=== PATIENT | male | born 1950 ===

== ENCOUNTER → 2018-04-02 | Outpatient (CLI) | payer OTHER, MEDICARE ==
[2018-04-02 18:51] LABS: FREE T4 (FREE THYROXINE) 1.45 NG/DL (0.70-1.48)
== END ==
LOC: LABNPT 18:11
PROVIDERS: ATTEND Internal Medicine
DX: N17.9 Acute kidney failure, unspecified (principal)
CPT/HCPCS: 84439; 84443

== ENCOUNTER → 2020-10-07 | Outpatient (CLI) | payer MEDICARE, OTHER ==
[2020-10-07 13:30] LABS: HEMOGLOBIN 7.8 g/dL (13.3-17.7)
== END ==
LOC: HH 12:35
PROVIDERS: ATTEND Internal Medicine
DX: Z79.02 Long term (current) use of antithrombotics/antiplatelets (principal)
CPT/HCPCS: 85014; 85018

== ENCOUNTER → 2020-11-05 | Outpatient (CLI) | payer MEDICARE, OTHER ==
[2020-11-05 12:00] LABS: HEMOGLOBIN 7.9 g/dL (13.3-17.7)
== END ==
LOC: IHC 11:54
PROVIDERS: ATTEND Internal Medicine
DX: K92.2 Gastrointestinal hemorrhage, unspecified (principal); D64.9 Anemia, unspecified
CPT/HCPCS: 85014; 85018

== ENCOUNTER → 2020-11-19 | Outpatient (CLI) | payer MEDICARE, OTHER ==
[2020-11-19 11:52] LABS: HEMOGLOBIN 8.5 g/dL (13.3-17.7)
== END ==
LOC: IHC 11:46
PROVIDERS: ATTEND Internal Medicine
DX: K92.2 Gastrointestinal hemorrhage, unspecified (principal); D64.9 Anemia, unspecified
CPT/HCPCS: 85014; 85018

== ENCOUNTER → 2021-02-17 | Outpatient (CLI) | payer MEDICARE, OTHER ==
[2021-02-17 10:39] LABS: HEMOGLOBIN 8.4 g/dL (13.3-17.7)
== END ==
LOC: LABNPT 10:33
DX: I50.33 Acute on chronic diastolic (congestive) heart failure (principal)
CPT/HCPCS: 85014; 85018

== ENCOUNTER → 2021-02-22 | Outpatient (CLI) | payer MEDICARE, OTHER ==
[2021-02-22 13:51] LABS: HEMOGLOBIN 8.2 g/dL (13.3-17.7)
== END ==
LOC: LABNPT 13:34
PROVIDERS: ATTEND Internal Medicine
DX: I50.33 Acute on chronic diastolic (congestive) heart failure (principal)
CPT/HCPCS: 85014; 85018

== ENCOUNTER → 2021-03-02 | Outpatient (CLI) | payer MEDICARE, OTHER ==
[2021-03-02 11:27] LABS: HEMOGLOBIN 8.2 g/dL (13.3-17.7)
== END ==
LOC: LABNPT 11:18
DX: C22.0 Liver cell carcinoma (principal)
CPT/HCPCS: 85014; 85018